=== PATIENT | female | born 1960 | race Caucasian/White ===

== ENCOUNTER 2016-06-28 10:02 | Emergency (ER) | payer MEDICARE ==
[2016-06-28] MEDS ORDERED: Sodium Chloride 0.9% 10 ML Syringe FLUSH PRN (10:08)
[2016-06-28] MEDS ORDERED: Metoprolol Tartrate 5 MG/5 ML SDV IVPUSH ONE (10:35)
[2016-06-28 11:08] LABS: CHLORIDE,CL 110 mmol/L (98-107); SODIUM,NA 143 mmol/L (136-145)
[2016-06-28 11:24] VITALS: BP 174/86
--- NOTE | 2016-06-29 08:34 | ER ---
Date of Service: 06/28/2016 SUBJECTIVE: Giuliana presents to the emergency room with complaints of respirophasic chest pain. She states that occasionally it has radiated into her jaw. She does have a history of coronary artery disease and did have a myocardial infarction in 2009 and 2013, but was unable to undergo any percutaneous intervention or and was not a surgical candidate as she has a history of chronic kidney disease. She is supposed to be on dialysis but has not had but states that she did not feel well on dialysis and subsequently stopped hemodialysis. The patient states that she has been experiencing this respirophasic chest discomfort again for approximately 3 days. Again, she states that it is constant but it is worse with deep breathing and is intermittent in nature. PAST MEDICAL HISTORY: 1. Chronic kidney disease. 2. Coronary artery disease. 3. Hypertension. MEDICATIONS: 1. Plavix. 2. Norvasc. 3. Atenolol. ALLERGIES: Morphine. REVIEW OF SYSTEMS: General: No fever or chills. HEENT: No sore throat, rhinorrhea, or congestion. Respiratory: No shortness of breath. Cardiac: Does complain of substernal chest pain. GASTROINTESTINAL: No nausea, vomiting, or diarrhea. No melena, hematochezia, or hematemesis. GENITOURINARY: Denies any dysuria. MUSCULOSKELETAL: No myalgias or arthralgias. NEUROLOGIC: No fainting, blackouts, or lightheadedness. PHYSICAL EXAMINATION: General: This is a 55-year-old female patient, in no acute distress. Vital Signs: Initially, blood pressure was 225/102, pulse rate is 61, respiratory rate is 18, and O2 saturations 99%. Skin: Warm, pink, and dry. HEENT: Head is normocephalic, atraumatic. Mouth, oral mucosa is moist. Lungs: Clear to auscultation. Heart: Regular rate and rhythm. Normal S1, S2. No S3, S4, clicks, or rubs. Abdomen: Soft and nontender. There is no hepatosplenomegaly or masses noted. Extremities: Without edema. Neurologic: She is alert and oriented and answers all questions appropriately. Her speech is fluent. Her gait is within normal limits. DIAGNOSTIC DATA: A 15-lead EKG was obtained showing a sinus rhythm without any acute ST or T-wave changes. PA and lateral chest x-ray were obtained. No obvious infiltrate, failure pattern, or other pathology were noted. WBCs 11.5, hemoglobin is 11.0, and platelets are 258. Coags; PT is 9.7, INR is 0.9. D- dimer is positive at 0.67. Chemistry; sodium is 143, potassium is 5.1, chloride is 110, bicarb is 18, BUN is 69, creatinine is 7.8. GFR is 5. Glucose is 89, calcium is 8.6, corrected calcium is 9.0. Total bilirubin is 0.3, AST is 11, ALT is 15, alkaline phosphatase is 126. CK-MB is 1.2. Troponin is 0.05. C- reactive protein is 0.5. EMERGENCY ROOM COURSE: IV access had been established via EMS. She was given 5 mg of Lopressor IV. Her blood pressure improved to 181/86. She remained stable by my care in the emergency room. ASSESSMENT: Respirophasic chest pain with positive D-dimer. PLAN: The patient will be transferred to for V/Q scan. She does again have a positive D-dimer and is unable to undergo a CT angiogram of the chest to rule out pulmonary embolism. The patient will be transported by [facility] ground ambulance. I did speak with Dr. Olivo who accepts the patient in transfer. She will be transported by [facility] ground ambulance. All questions were answered. MWK: 06/28/2016 11:54:20 MODL: 06/28/2016 12:19:39 /[id number]
== END 2016-06-28 12:01 | disposition short-term general hospital (02) ==
LOC: VM.ED 10:02
DX: R07.9 Chest pain, unspecified (principal); R79.89 Other specified abnormal findings of blood chemistry; I13.0 Hypertensive heart and chronic kidney disease with heart failure and stage 1 through stage 4 chronic kidney disease, or unspecified chronic kidney disease; N18.9 Chronic kidney disease, unspecified; I25.10 Atherosclerotic heart disease of native coronary artery without angina pectoris; Z88.5 Allergy status to narcotic agent
CPT/HCPCS: 36415; 71020; 80053; 82550; 82553; 84484; 85025; 85379; 85610; 86140; 93005; 96374; 99284-GF; 99285; J3490

== ENCOUNTER 2016-07-26 21:15 | Emergency (ER) | payer MEDICARE ==
[2016-07-26] MEDS ORDERED: Sodium Chloride 0.9% 1,000 ML IV SCH (21:30)
[2016-07-26] MEDS ORDERED: Famotidine 20 MG/2 ML SDV IVPUSH ONE (21:30)
[2016-07-26] MEDS ORDERED: Sodium Chloride 0.9% 10 ML Syringe FLUSH PRN (21:30)
[2016-07-26] MEDS ORDERED: Pantoprazole 40 MG Vial IVPUSH ONE (21:31)
[2016-07-26] MEDS ORDERED: Alum Hydroxide/Mag Hydroxide 10 ML, Lidocaine 2% 10 ML, Promethazine 12.5 MG PO ONE ×6 (21:31→22:21)
[2016-07-26] MEDS ORDERED: Ondansetron 4 MG/2 ML SDV IVPUSH ONE (21:31)
--- NOTE | 2016-07-26 21:44 | EDM.PDOC ---
ED HPI GENERAL MEDICAL PROBLEM - General Chief Complaint: Abdominal Pain Stated Complaint: Epigastric pain Time Seen by Provider: 07/26/16 21:17 Source of Information: Reports: Patient, Family, RN, RN Notes Reviewed History Limitations: Reports: No Limitations - History of Present Illness INITIAL COMMENTS - FREE TEXT/NARRATIVE: Patient presents to the emergency room at [facility] complaining of epigastric pain. The patient relates that she stopped doing kidney dialysis February 2015. Since then she has been taking sodium bicarbonate to help her kidneys. The patient states that she ran out of her sodium bicarbonate some time ago. The patient states that she has not been taking her medicine she has been having gastric pain. The patient states that she was seen by her primary today who reordered by mouth sodium bicarbonate. According to the patient that she is not able to get the medicine until tomorrow when the pharmacy will have it in stock. The patient states that she did vomit yesterday. The patient states she has not had any diarrhea that she is more constipated. The patient denies any cardiac chest pain. No shortness of breath. The patient states that her epigastric pain is very severe. The patient states the pain feels "like somebody is ripping stomach apart." Onset: Gradual Duration: Constant Location: Reports: Abdomen (Epigastric) Quality: Reports: Burning, Stabbing, Throbbing Severity: Severe Improves with: Reports: Medication (NaHCO3) Worsens with: Reports: Breathing, Eating Context: Denies: Sick Contact, Trauma Associated Symptoms: Reports: Nausea/Vomiting Treatments METAL CUTTER: Reports: Other (see below) (Patient is suppose to be taking NaHCO3 but ran out of the medication.) Bilateral Upper Shoulder Pain Score (Numeric/FACES): 5 - Related Data Allergies Allergy/AdvReac Type Severity Reaction Status Date / Time morphine Allergy Other Verified 06/28/16 10:21 Home Meds: Home Meds Atenolol 25 mg PO BEDTIME 06/28/16 [History] Clopidogrel [Plavix] 75 mg PO DAILY 06/28/16 [History] amLODIPine [Norvasc] 10 mg PO BEDTIME 06/28/16 [History] Sodium Bicarbonate 650 mg PO TID #6 tablet 07/26/16 [Rx] Past Medical History Cardiovascular History: Reports: Hypertension, [place] Genitourinary History: Reports: Chronic Renal Insuffiency, Dialysis Other Genitourinary History: quit dialysis 1 year ago - Past Surgical History Cardiovascular Surgical History: Reports: Coronary Artery Stent Musculoskeletal Surgical History: Reports: Knee Replacement Social & Family History - Tobacco Use Smoking Status *Q: Current Every Day Smoker Years of Tobacco use: 30 Packs/Tins Daily: 1 ED ROS GENERAL - Review of Systems Review Of Systems: See Below Constitutional: Reports: Diaphoresis, Decreased Appetite. Denies: Fever, Chills , Weakness Respiratory: Denies: Shortness of Breath, Cough Cardiovascular: Denies: Chest Pain, Palpitations GI/Abdominal: Reports: Abdominal Pain, Constipation, Decreased Appetite, Nausea , Vomiting. Denies: Black Stool, Bloody Stool, Diarrhea Skin: Reports: No Symptoms Neurological: Reports: No Symptoms. Denies: Dizziness, Headache ED EXAM, GI/ABD - Physical Exam Exam: See Below Exam Limited By: No Limitations General Appearance: Alert, No Apparent Distress, Cachetic Respiratory/Chest: No Respiratory Distress, Lungs Clear, Normal Breath Sounds Cardiovascular: Regular Rate, Rhythm GI/Abdominal: Hyperactive Bowel Sounds, Tenderness, Guarding. No: Distention, Rebound, Rigidity Neurological: Alert, Oriented Skin Exam: Warm, Dry, Intact, Normal Color, No Rash Course - Vital Signs Last Recorded V/S: Last Vital Signs Temp 36.4 C 07/26/16 22:31 Pulse 100 07/26/16 22:31 Resp 16 07/26/16 22:31 BP Pulse Ox 100 07/26/16 22:31 - Orders/Labs/Meds Orders: Active Orders 24 hr Category Date Time Status Abdomen 2V AP Flat Upright [CR] Stat Exams 07/26/16 21:33 Taken Sodium Chloride 0.9% [Normal Saline] 1,000 ml Med 07/26/16 21:30 Active IV ASDIRECTED Sodium Chloride 0.9% [Saline Flush] Med 07/26/16 21:30 Active 10 ml FLUSH ASDIRECTED PRN Peripheral IV Insertion Adult [OM.PC] Routine Oth 07/26/16 21:30 Ordered Medication Orders Sodium Chloride (Normal Saline) 1,000 mls @ 999 mls/hr IV ASDIRECTED HLOLY Last Admin: 07/26/16 22:12 Dose: 999 mls/hr Sodium Chloride (Saline Flush) 10 ml FLUSH ASDIRECTED PRN PRN Reason: Keep Vein Open Labs: Laboratory Tests 07/26/16 07/26/16 07/26/16 Range/Units 23:00 23:00 23:00 WBC 10.0 (4.0-10.0) x10^3/uL RBC 3.19 L (4.00-5.50) x10^6/uL Hgb 9.3 L D (12.0-16.0) g/dL Hct 27.7 L (33.0-47.0) % MCV 86.8 (78.0-93.0) fL MCH 29.2 (26.0-32.0) pg MCHC 33.6 (32.0-36.0) g/dL RDW Coeff of Long 14.8 (10.0-15.0) % Plt Count 228 (130-400) x10^3/uL Neut % (Auto) 71.2 (50.0-80.0) % Lymph % (Auto) 20.5 L (25.0-50.0) % [place] % (Auto) 5.9 (2.0-11.0) % Eos % (Auto) 2.1 (0.0-4.0) % Baso % (Auto) 0.3 (0.2-1.2) % Sodium 143 (136-145) mmol/L Potassium 4.4 (3.5-5.1) mmol/L Chloride 109 H (98-107) mmol/L Carbon Dioxide 20 L (21-32) mmol/L BUN 83 H* (7-18) mg/dL Creatinine 7.7 H* (0.55-1.02) mg/dL Est Cr Clr Drug Dosing TNP Estimated GFR (MDRD) 5 Glucose 104 (74-106) mg/dL Lactic Acid 0.5 (0.4-2.0) mmol/L Calcium 8.3 L (8.5-10.1) mg/dL C-Reactive Protein (<=0.9) mg/dL Amylase (25-115) U/L Lipase (73-393) U/L 07/26/16 Range/Units 23:05 WBC (4.0-10.0) x10^3/uL RBC (4.00-5.50) x10^6/uL Hgb (12.0-16.0) g/dL Hct (33.0-47.0) % MCV (78.0-93.0) fL MCH (26.0-32.0) pg MCHC (32.0-36.0) g/dL RDW Coeff of Long (10.0-15.0) % Plt Count (130-400) x10^3/uL Neut % (Auto) (50.0-80.0) % Lymph % (Auto) (25.0-50.0) % [place] % (Auto) (2.0-11.0) % Eos % (Auto) (0.0-4.0) % Baso % (Auto) (0.2-1.2) % Sodium (136-145) mmol/L Potassium (3.5-5.1) mmol/L Chloride (98-107) mmol/L Carbon Dioxide (21-32) mmol/L BUN (7-18) mg/dL Creatinine (0.55-1.02) mg/dL Est Cr Clr Drug Dosing Estimated GFR (MDRD) Glucose (74-106) mg/dL Lactic Acid (0.4-2.0) mmol/L Calcium (8.5-10.1) mg/dL C-Reactive Protein < 0.2 (<=0.9) mg/dL Amylase 76 (25-115) U/L Lipase 272 (73-393) U/L Meds: Medications Generic Name Dose Route Start Last Admin Trade Name Freq PRN Reason Stop Dose Admin Sodium Chloride 1,000 mls @ 999 mls/hr 07/26/16 21:30 07/26/16 22:12 Normal Saline IV 999 mls/hr ASDIRECTED HOLLY Administration Sodium Chloride 10 ml 07/26/16 21:30 Saline Flush FLUSH ASDIRECTED PRN Keep Vein Open Discontinued Medications Generic Name Dose Route Start Last Admin Trade Name Freq PRN Reason Stop Dose Admin Al Hydroxide/Mg Hydroxide 30 ml 07/26/16 22:16 07/26/16 22:23 Gi Cocktail PO 07/26/16 22:17 Not Given ONETIME ONE Al Hydroxide/Mg Hydroxide 30 ml 07/26/16 22:20 07/26/16 22:23 Gi Cocktail PO 07/26/16 22:21 30 ml ONETIME ONE Administration Al Hydroxide/Mg Hydroxide 10 0 ml 07/26/16 22:21 ml/ Lidocaine HCl 10 ml/ PO 07/26/16 22:22 Promethazine HCl 12.5 mg ONETIME ONE Famotidine 20 mg 07/26/16 21:30 07/26/16 22:12 Pepcid IVPUSH 07/26/16 21:31 20 mg ONETIME ONE Administration Ondansetron HCl 4 mg 07/26/16 21:31 07/26/16 22:12 Zofran IVPUSH 07/26/16 21:32 4 mg ONETIME ONE Administration Pantoprazole Sodium 40 mg 07/26/16 21:31 07/26/16 22:13 Protonix Iv IVPUSH 07/26/16 21:32 40 mg ONETIME ONE Administration - Radiology Interpretation Free Text/Narrative:: Abd Xray: Distended cecum with increased fecal material in the ascending colon. No acute obstruction. No free air. See scanned document in EMR Departure - Departure Time of Disposition: 23:47 Disposition: Home, Self-Care 01 Condition: good Clinical Impression: Gastroesophageal reflux Qualifiers: Esophagitis presence: with esophagitis Qualified Code(s): K21.0 - Gastro- esophageal reflux disease with esophagitis Constipation Qualifiers: Constipation type: unspecified constipation type Qualified Code(s): K59.00 - Constipation, unspecified - Discharge Information Prescriptions: Sodium Bicarbonate 650 mg PO TID #6 tablet Instructions: Constipation, Adult, [id number], Heartburn Referrals: Malena Butler, [employer]SULTANT [Primary Care Provider] - Forms: ED Department Discharge Additional Instructions: 1. Stay well hydrated and rest 2. Continue same medications at home 3. Eat a bland diet if possible 4. Avoid carbonated beverages 5. See your Primary in follow up - Problem List Review Problem List Initiated/Reviewed/Updated: Yes - My Orders Last 24 Hours: My Active Orders 07/26/16 21:30 Sodium Chloride 0.9% [Normal Saline] 1,000 ml IV ASDIRECTED Sodium Chloride 0.9% [Saline Flush] 10 ml FLUSH ASDIRECTED PRN Peripheral IV Insertion Adult [OM.PC] Routine 07/26/16 21:33 Abdomen 2V AP Flat Upright [CR] Stat - Assessment/Plan Last 24 Hours: My Active Orders 07/26/16 21:30 Sodium Chloride 0.9% [Normal Saline] 1,000 ml IV ASDIRECTED Sodium Chloride 0.9% [Saline Flush] 10 ml FLUSH ASDIRECTED PRN Peripheral IV Insertion Adult [OM.PC] Routine 07/26/16 21:33 Abdomen 2V AP Flat Upright [CR] Stat
[2016-07-26] MEDS ORDERED: GI Cocktail Oral Solution 30 ML PO ONE ×2 (22:16→22:20)
[2016-07-26 23:29] LABS: CHLORIDE,CL 109 mmol/L (98-107); SODIUM,NA 143 mmol/L (136-145)
== END 2016-07-27 00:03 | disposition home or self-care (01) ==
LOC: VM.ED 21:15
DX: K21.0 Gastro-esophageal reflux disease with esophagitis (principal); K59.00 Constipation, unspecified; I25.2 Old myocardial infarction; I12.9 Hypertensive chronic kidney disease with stage 1 through stage 4 chronic kidney disease, or unspecified chronic kidney disease; N18.9 Chronic kidney disease, unspecified; F17.210 Nicotine dependence, cigarettes, uncomplicated; Z88.5 Allergy status to narcotic agent; Z79.899 Other long term (current) drug therapy; Z95.5 Presence of coronary angioplasty implant and graft; Z96.659 Presence of unspecified artificial knee joint
CPT/HCPCS: 36415; 74020; 80048; 82150; 83605; 83690; 85025; 86140; 96361; 96374; 96375; 99284; A9270; C9113; J2405; J7030; S0028

== ENCOUNTER 2016-08-06 18:32 | Emergency (ER) | payer MEDICARE ==
[2016-08-06] MEDS ORDERED: Aspirin 81 MG Tab.Chew PO ONE (18:35)
[2016-08-06] MEDS ORDERED: Nitroglycerin 0.4 MG Tab.SL SL ONE (18:35)
[2016-08-06] MEDS ORDERED: Nitroglycerin 0.4 MG Tab.SL SL PRN (18:50)
[2016-08-06] MEDS ORDERED: Sodium Chloride 0.9% 10 ML Syringe FLUSH PRN (18:52)
[2016-08-06] MEDS ORDERED: Pantoprazole 40 MG Vial IVPUSH ONE (18:53)
[2016-08-06] MEDS ORDERED: Nitroglycerin 2% Oint 1 GM UD Packet TOP ONE (18:53)
--- NOTE | 2016-08-06 18:54 | EDM.PDOC ---
ED HPI GENERAL MEDICAL PROBLEM - General Chief Complaint: Chest Pain Stated Complaint: chest pain for two days Time Seen by Provider: 08/06/16 18:45 Source of Information: Reports: Patient, Family History Limitations: Reports: No Limitations - History of Present Illness INITIAL COMMENTS - FREE TEXT/NARRATIVE: intermittent epigastric and lower sternal pain for two days Onset: Gradual Duration: Day(s): (two days), Getting Worse, Intermittent, Recurring, Waxing/ Waning Location: Reports: Chest (epigastric and chest) Quality: Reports: Stabbing, Throbbing Severity: Severe Improves with: Reports: Other (took nitro sublingual prior to arrival which helped) Worsens with: Reports: None Associated Symptoms: Reports: Chest Pain, Other (radiation to right shoulder) Treatments SENIOR MEDIA DIRECTOR: Reports: Other (see below) (nitro sublingual) Chest Pain Score (Numeric/FACES): 10 - Related Data Allergies Allergy/AdvReac Type Severity Reaction Status Date / Time morphine Allergy Other Verified 07/27/16 06:10 Home Meds: Home Meds Atenolol 25 mg PO BEDTIME 06/28/16 [History] Clopidogrel [Plavix] 75 mg PO DAILY 06/28/16 [History] amLODIPine [Norvasc] 10 mg PO BEDTIME 06/28/16 [History] Sodium Bicarbonate 650 mg PO TID #6 tablet 07/26/16 [Rx] Past Medical History Cardiovascular History: Reports: Hypertension, [place] Genitourinary History: Reports: Chronic Renal Insuffiency, Dialysis Other Genitourinary History: quit dialysis 1 year ago - Past Surgical History Cardiovascular Surgical History: Reports: Coronary Artery Stent Musculoskeletal Surgical History: Reports: Knee Replacement Social & Family History - Tobacco Use Smoking Status *Q: Current Every Day Smoker Years of Tobacco use: 30 Packs/Tins Daily: 1 ED ROS GENERAL - Review of Systems Review Of Systems: See Below Constitutional: Reports: Diaphoresis, Decreased Appetite. Denies: Fever, Chills , Malaise, Weakness HEENT: Reports: No Symptoms Respiratory: Denies: Shortness of Breath, Wheezing, Pleuritic Chest Pain, Cough , Sputum Cardiovascular: Reports: Chest Pain. Denies: Dyspnea on Exertion, Edema, Lightheadedness, Palpitations Endocrine: Reports: Other (patient quit dialysis 16 months ago with intention, has known ESRD) GI/Abdominal: Reports: No Symptoms. Denies: Abdominal Pain, Black Stool, Bloody Stool, Constipation, Decreased Appetite, Distension, Flatus : Reports: No Symptoms Musculoskeletal: Reports: No Symptoms Skin: Reports: No Symptoms Neurological: Reports: No Symptoms Psychiatric: Reports: Anxiety Hematologic/Lymphatic: Reports: No Symptoms Immunologic: Reports: No Symptoms ED EXAM, GENERAL - Physical Exam Exam: See Below Exam Limited By: No Limitations General Appearance: Alert, Severe Distress, Other (severe distress on arrival to ER which responded well to sublinqual nitro times two.) Eye Exam: Bilateral Eye: EOMI, PERRL Ears: Normal External Exam, Normal Canal, Hearing Grossly Normal, Normal TMs Nose: Normal Inspection, Normal Mucosa Throat/Mouth: Normal Inspection, Normal Lips, Normal Teeth, Normal Gums, Normal Oropharynx Head: Atraumatic, Normocephalic Neck: Normal Inspection, Supple, Non-Tender, Full Range of Motion Respiratory/Chest: No Respiratory Distress, Lungs Clear, Normal Breath Sounds, No Accessory Muscle Use, Chest Non-Tender Cardiovascular: Normal Peripheral Pulses, Regular Rate, Rhythm, No Edema, No Gallop, No JVD, No Murmur, No Rub Peripheral Pulses: 2+: Radial (L), Radial (R), Dorsalis Pedis (L), Dorsalis Pedis (R) GI/Abdominal: Normal Bowel Sounds, Soft, Non-Tender, No Organomegaly, No Distention, No Abnormal Bruit, No Mass, Pelvis Stable Back Exam: Normal Inspection, Full Range of Motion Extremities: Normal Inspection, Normal Range of Motion, Non-Tender, No Pedal Edema, Normal Capillary Refill Neurological: Alert, Oriented, CN II-XII Intact, Normal Cognition, Normal Gait, Normal Reflexes, No Motor/Sensory Deficits Psychiatric: Normal Affect, Anxious Skin Exam: Warm, Dry, Intact, Normal Color, No Rash Lymphatic: No Adenopathy EKG INTERPRETATION EKG Date: 08/06/16 Time: 18:35 Rhythm: NSR Rate (beats/min): 74 [place]: RAD-right axis deviation P-wave: present QRS: normal (diffuse new st segment inversion noted compared to old EKG) ST-T: other (new t wave inversion in 1, 11, 111, avl, avf) Comparison: change from previous EKG Course - Vital Signs Text/Narrative:: Pat evaluated and labs and diagnostics done. Put on monitor. given asa and sublingual ntg with good relief of chest pain noted. Labs and diagnostics reviewed with patient. Advised patient she is in acute renal failure due to stopping dialysis. Cardiac enzymes negative but is still showing signs of coronary lack of oxygen. Strongly recommended patient be transferred to [place] for further evaluation and treatment but she adamantly refused. Patient was given detailed explanation of labs and diagnostics and their relation to her pain and medical condition in the presence of SEB [place] and patients significant other. Patient adamantly refused transfer and requested to just be sent home with pain meds till she gets a chance tomorrow to get in to see her regular provider. She states will not start dialysis again due to bad previous experience and is ready to enter hospice. She verbally confirmed me she does not wish to be resucitated if her heart or breathing stops and was adamant in her refusal for transfer. In my opinion she has a good understanding of the great risk she takes by refusing transfer and further evaluation but that is her firm wish which will be respected. She was given a dose of dilaudid and zofran with good pain relief prior to discharge and was sent home with four doses of prn 2 mg dilaudid and instructions to follow up with PCP in the morning. Last Recorded V/S: Last Vital Signs Temp 36.4 C 08/06/16 18:45 Pulse 75 08/06/16 18:45 Resp 18 08/06/16 18:45 BP 169/100 H 08/06/16 18:45 Pulse Ox 98 08/06/16 18:45 - Orders/Labs/Meds Orders: Active Orders 24 hr Category Date Time Status EKG 12 Lead [EKG Documentation Completion] [RC] STAT Care 08/06/16 18:48 Active Chest 2V [CR] Stat Exams 08/06/16 18:50 Taken HYDROmorphone [Dilaudid] Med 08/06/16 20:29 Active 2 mg PO Q4H PRN Sodium Chloride 0.9% [Saline Flush] Med 08/06/16 18:52 Active 10 ml FLUSH ASDIRECTED PRN Saline Lock Insert [OM.PC] Routine Oth 08/06/16 18:52 Ordered Medication Orders Hydromorphone HCl (Dilaudid) 2 mg PO Q4H PRN PRN Reason: Pain Stop: 06/06/17 08:30 Last Admin: 08/06/16 21:09 Dose: 8 mg Sodium Chloride (Saline Flush) 10 ml FLUSH ASDIRECTED PRN PRN Reason: Keep Vein Open Labs: Laboratory Tests 08/06/16 08/06/16 08/06/16 Range/Units 18:40 18:40 18:52 WBC 10.6 H (4.0-10.0) x10^3/uL RBC 3.61 L (4.00-5.50) x10^6/uL Hgb 10.4 L (12.0-16.0) g/dL Hct 31.2 L (33.0-47.0) % MCV 86.4 (78.0-93.0) fL MCH 28.8 (26.0-32.0) pg MCHC 33.3 (32.0-36.0) g/dL RDW Coeff of Long 14.8 (10.0-15.0) % Plt Count 289 (130-400) x10^3/uL Neut % (Auto) 71.7 (50.0-80.0) % Lymph % (Auto) 18.1 L (25.0-50.0) % [place] % (Auto) 6.3 (2.0-11.0) % Eos % (Auto) 3.6 (0.0-4.0) % Baso % (Auto) 0.3 (0.2-1.2) % Sodium 147 H (136-145) mmol/L Potassium 4.7 (3.5-5.1) mmol/L Chloride 110 H (98-107) mmol/L Carbon Dioxide 24 (21-32) mmol/L BUN 81 H* (7-18) mg/dL Creatinine 8.3 H* (0.55-1.02) mg/dL Est Cr Clr Drug Dosing TNP Estimated GFR (MDRD) 5 Glucose 106 (74-106) mg/dL Calcium 8.7 (8.5-10.1) mg/dL Corrected Calcium 9.10 (8.5-10.1) mg/dL Total Bilirubin 0.4 (0.2-1.0) mg/dL AST 12 L (15-37) U/L ALT 17 (14-59) U/L Alkaline Phosphatase 126 H (46-116) U/L Creatine Kinase 59 (26-192) U/L Creatine Kinase Index 1.0 (0.0-4.0) % CK-MB (CK-2) 0.6 (0.0-3.6) ng/mL POC Troponin I 0.01 (0.00-0.08) ng/mL Total Protein 7.2 (6.4-8.2) g/dL Albumin 3.5 (3.4-5.0) g/dL Globulin 3.7 Albumin/Globulin Ratio 0.95 Meds: Medications Generic Name Dose Route Start Last Admin Trade Name Fremadelin PRN Reason Stop Dose Admin Hydromorphone HCl 2 mg 08/06/16 20:29 08/06/16 21:09 Dilaudid PO 08/07/16 08:30 8 mg Q4H PRN Administration Pain Sodium Chloride 10 ml 08/06/16 18:52 Saline Flush FLUSH ASDIRECTED PRN Keep Vein Open Discontinued Medications Generic Name Dose Route Start Last Admin Trade Name Denia PRN Reason Stop Dose Admin Hydromorphone HCl 1 mg 08/06/16 20:05 08/06/16 20:11 Dilaudid IVPUSH 08/06/16 20:06 1 mg ONETIME ONE Administration Hydromorphone HCl 1 mg 08/06/16 20:30 08/06/16 20:41 Dilaudid IVPUSH 08/06/16 20:31 1 mg ONETIME ONE Administration Nitroglycerin 0.4 mg 08/06/16 18:50 Nitrostat SL 08/06/16 19:01 Q5M PRN Chest Pain Nitroglycerin 1 gm 08/06/16 18:53 08/06/16 19:16 Nitro-Bid 2% TOP 08/06/16 18:54 1 gm ONETIME ONE Administration Ondansetron HCl Confirm 08/06/16 21:06 08/06/16 21:41 Zofran Administered 08/06/16 21:07 Not Given Dose 4 mg .ROUTE .STK-MED ONE Ondansetron HCl 4 mg 08/06/16 19:46 08/06/16 20:00 Zofran IVPUSH 08/06/16 19:47 4 mg ONETIME ONE Administration Ondansetron HCl 4 mg 08/06/16 21:00 08/06/16 21:03 Zofran IVPUSH 08/06/16 21:01 4 mg ONETIME ONE Administration Pantoprazole Sodium 80 mg 08/06/16 18:53 08/06/16 19:18 Protonix Iv IVPUSH 08/06/16 18:54 80 mg ONETIME ONE Administration Departure - Departure Time of Disposition: 20:27 Disposition: Home, Self-Care 01 Condition: poor Clinical Impression: Acute renal failure Instructions: Acute Kidney Injury, Uremia Referrals: Malena Butler NP [Primary Care Provider] - Forms: ED Department Discharge Additional Instructions: Take dilaudid 2 mg every four hours as needed for pain and get in to see your primary care provider tomorrow - My Orders Last 24 Hours: My Active Orders 08/06/16 18:48 EKG 12 Lead [EKG Documentation Completion] [RC] STAT 08/06/16 18:50 Chest 2V [CR] Stat 08/06/16 18:52 Sodium Chloride 0.9% [Saline Flush] 10 ml FLUSH ASDIRECTED PRN Saline Lock Insert [OM.PC] Routine 08/06/16 20:29 HYDROmorphone [Dilaudid] 2 mg PO Q4H PRN - Assessment/Plan Last 24 Hours: My Active Orders 08/06/16 18:48 EKG 12 Lead [EKG Documentation Completion] [RC] STAT 08/06/16 18:50 Chest 2V [CR] Stat 08/06/16 18:52 Sodium Chloride 0.9% [Saline Flush] 10 ml FLUSH ASDIRECTED PRN Saline Lock Insert [OM.PC] Routine 08/06/16 20:29 HYDROmorphone [Dilaudid] 2 mg PO Q4H PRN
[2016-08-06 19:20] LABS: CHLORIDE,CL 110 mmol/L (98-107); SODIUM,NA 147 mmol/L (136-145)
[2016-08-06] MEDS ORDERED: Ondansetron 4 MG in Sodium Chloride 0.9% 100 ML IV ONE (19:46)
[2016-08-06] MEDS ORDERED: Ondansetron 4 MG/2 ML SDV IVPUSH ONE ×2 (19:46→21:00)
[2016-08-06] MEDS ORDERED: HYDROmorphone 1 MG/ML Syringe IVPUSH ONE ×2 (20:05→20:30)
[2016-08-06] MEDS ORDERED: HYDROmorphone 2 MG Tab PO PRN (20:29)
[2016-08-06] MEDS ORDERED: Ondansetron 4 MG/2 ML SDV ONE (21:06)
[2016-08-07 09:36] VITALS: BP 158/85
== END 2016-08-06 21:09 | disposition home or self-care (01) ==
LOC: VM.ED 18:32
DX: N17.9 Acute kidney failure, unspecified (principal); I25.2 Old myocardial infarction; I12.9 Hypertensive chronic kidney disease with stage 1 through stage 4 chronic kidney disease, or unspecified chronic kidney disease; N18.9 Chronic kidney disease, unspecified; F17.210 Nicotine dependence, cigarettes, uncomplicated; Z88.6 Allergy status to analgesic agent; Z79.899 Other long term (current) drug therapy; Z95.5 Presence of coronary angioplasty implant and graft
CPT/HCPCS: 71020; 80053; 82550; 82553; 84484; 85025; 93005; 96374; 96375; 96376; 99285; A9270; C9113; J1170; J2405

== ENCOUNTER 2018-09-08 18:24 | Emergency (ER) | payer MEDICARE ==
[2018-09-08 19:11] VITALS: BP 157/83; PULSE 75
--- NOTE | 2018-09-08 19:45 | CR ---
[id number] RAD/RAD Abd Flat and Upright 2V EXAM: RAD Abd Flat and Upright 2V INDICATION: ABDOMINAL PAIN COMPARISON: July 26, 2016. DISCUSSION: Unobstructed bowel gas pattern. No radiographically evident pneumoperitoneum. Moderate amount of retained stool within the colon. IMPRESSION: Moderate amount of retained stool within the colon. No evidence of obstruction. Joselito Puente DO 09/08/18 1944 Thank you for allowing us to participate in the care of your patient.
--- NOTE | 2018-09-09 03:56 | EDM.PDOC ---
ED HPI GENERAL MEDICAL PROBLEM - General Chief Complaint: Gastrointestinal Problem Time Seen by Provider: 09/08/18 18:45 Source of Information: Reports: Patient History Limitations: Reports: No Limitations - History of Present Illness INITIAL COMMENTS - FREE TEXT/NARRATIVE: Pt. presents to ER with complaints of abdominal cramping and no bowel movement in 4 days. Pt. is currently on hospice for CKD. She is accompanied to ER by her and a hospice nurse. Pt. wants to remain on hospice, and hospice will allow an abdominal x-ray to determine if the patient has a bowel obstruction or not. Pt. states that she has been afebrile. States that her abdominal discomfort is diffuse. She had a fleets enema yesterday and mag citrate a few hours before coming to ER with no result. She did have a suppository which helped her have a very small BM. Patient has not had any significant vomiting but complains of nausea, but states to worse than normal. Onset Date: 09/07/18 Location: Reports: Abdomen Quality: Reports: Dull, Pressure Lower Abdominal Pain Score (Numeric/FACES): 2 - Related Data Allergies Allergy/AdvReac Type Severity Reaction Status Date / Time morphine AdvReac Other Verified 09/08/18 19:07 Home Meds: Home Meds Atenolol 150 mg PO DAILY 06/28/16 [History] amLODIPine [Norvasc] 10 mg PO BEDTIME 06/28/16 [History] Acetaminophen [Tylenol] 650 mg PO Q4H PRN 09/08/18 [History] Aspirin 81 mg PO DAILY 09/08/18 [History] Bisacodyl [Dulcolax] 10 mg RC ASDIRECTED PRN 09/08/18 [History] ClonazePAM [KlonoPIN] 0.5 mg PO BEDTIME 09/08/18 [History] FLUoxetine HCl [Prozac] 20 mg PO DAILY 09/08/18 [History] HYDROmorphone [Dilaudid] 1 mg PO Q4H PRN 09/08/18 [History] Methadone 2.5 mg PO ASDIRECTED 09/08/18 [History] Na Phos,M-B/Na Phos,DI-B [Fleet Enema] 133 ml RC ASDIRECTED PRN 09/08/18 [ History] Nitroglycerin [Nitrostat] 0.4 mg SL ASDIRECTED PRN 09/08/18 [History] Ondansetron [Zofran] 8 mg PO Q8H PRN 09/08/18 [History] Polyethylene Glycol 3350 [MiraLAX] 17 gm PO DAILY 09/08/18 [History] Sennosides/Docusate Sodium [Senna Plus Tablet] 1 each PO DAILY 09/08/18 [History ] Past Medical History Cardiovascular History: Reports: Hypertension, [place] Genitourinary History: Reports: Chronic Renal Insuffiency, Dialysis Other Genitourinary History: quit dialysis 1 year ago - Past Surgical History Cardiovascular Surgical History: Reports: Coronary Artery Stent GI Surgical History: Reports: Cholecystectomy Musculoskeletal Surgical History: Reports: Knee Replacement Social & Family History - Tobacco Use Smoking Status *Q: Never Smoker ED ROS GENERAL - Review of Systems Review Of Systems: ROS reveals no pertinent complaints other than HPI. ED EXAM, GENERAL - Physical Exam Exam: See Below Exam Limited By: No Limitations General Appearance: Alert, WD/WN, No Apparent Distress Respiratory/Chest: No Respiratory Distress, Lungs Clear, Normal Breath Sounds, No Accessory Muscle Use, Chest Non-Tender Cardiovascular: Normal Peripheral Pulses, Regular Rate, Rhythm, No JVD, No Murmur Peripheral Pulses: 3+: Radial (R) GI/Abdominal: Normal Bowel Sounds, Soft, Non-Tender, No Organomegaly, Distended Extremities: Normal Inspection, Normal Range of Motion, Non-Tender, No Pedal Edema, Normal Capillary Refill Neurological: Alert, Oriented, CN II-XII Intact, Normal Cognition, No Motor/ Sensory Deficits Course - Vital Signs Last Recorded V/S: Last Vital Signs Temp 36.8 C 09/08/18 18:30 Pulse 75 09/08/18 18:30 Resp 18 09/08/18 18:30 BP 157/83 H 09/08/18 18:30 Pulse Ox 97 09/08/18 18:30 - Orders/Labs/Meds Orders: Active Orders 24 hr Category Date Time Status Enema [RC] ASDIRECTED Care 09/08/18 19:50 Active - Radiology Interpretation Free Text/Narrative:: F/U abdomen revealed stool throughout colon. No obvious obstruction noted. Departure - Departure Time of Disposition: 20:20 Disposition: DC/Tfer to Hospice - Home 50 Condition: Good Clinical Impression: Constipation Qualifiers: Constipation type: unspecified constipation type Qualified Code(s): K59.00 - Constipation, unspecified - Discharge Information Instructions: Constipation, Adult Referrals: Malena Butler, CHARGE ACCOUNT AUTHORIZER [Primary Care Provider] - Forms: ED Department Discharge Additional Instructions: You likely will have a bowel movement later tonight, especially after getting the mag citrate. If you do not have a bowel movement in 12 hours, I would repeat the soap suds enema as needed. - My Orders Last 24 Hours: My Active Orders 09/08/18 19:50 Enema [RC] ASDIRECTED - Assessment/Plan Last 24 Hours: My Active Orders 09/08/18 19:50 Enema [RC] ASDIRECTED Plan: Pt. was given a soap suds enema, but only tolerated about 200ml of water. Pt. had a very small bowel movement. She refused any further attempts at disimpaction. Pt. states that she feels she will be able to have a BM later tonight. Discussed findings with hospice nursing. All questions were answered.
== END 2018-09-08 20:20 | disposition hospice, home (50) ==
LOC: VM.ED 18:24
DX: K59.00 Constipation, unspecified (principal); I12.9 Hypertensive chronic kidney disease with stage 1 through stage 4 chronic kidney disease, or unspecified chronic kidney disease; N18.9 Chronic kidney disease, unspecified; Z79.899 Other long term (current) drug therapy; Z95.5 Presence of coronary angioplasty implant and graft; Z90.49 Acquired absence of other specified parts of digestive tract; Z88.5 Allergy status to narcotic agent
CPT/HCPCS: 74019; 99283-25; 99283-GF